=== PATIENT | female | born 1960 | race Caucasian/White ===

== ENCOUNTER 2017-08-30 06:06 | Inpatient (IN) | payer OTHER ==
[~2017-08-30 06:06] MED LIST: CEFAZOLIN 2 GM/50 ML (PMX) 50 ML IVPB
[2017-08-30] MEDS ORDERED: POLYMYXIN/BACITRACIN 1L IRRIG (09:17)
[2017-08-30] MEDS ORDERED: LABETALOL HCL 20MG INJ IV (09:30)
[2017-08-30] MEDS ORDERED: MIDAZOLAM 1 MG/ML 2 ML INJ IV (09:30)
[2017-08-30] MEDS ORDERED: hydrALAzine 20 MG INJ IV (09:30)
[2017-08-30] MEDS ORDERED: GLYCOPYRROLATE 0.4 MG INJ ×2 (09:30→09:47)
[2017-08-30] MEDS ORDERED: ROCURONIUM 50 MG INJ (09:30)
[2017-08-30] MEDS ORDERED: OXYCODONE/ACETAMINOPHEN (5/325) TAB PO ×2 (09:30)
[2017-08-30] MEDS ORDERED: METOCLOPRAMIDE 10 MG INJ IV (09:30)
[2017-08-30] MEDS ORDERED: FENTAnyl 50 MCG/ML VIAL IV (09:30)
[2017-08-30] MEDS ORDERED: EPHEDrine SULFATE 50 MG/5 ML SYG IV (09:30)
[2017-08-30] MEDS ORDERED: HYDROmorphONE 1 MG/5 ML IV SYRINGE IV (09:30)
[2017-08-30] MEDS ORDERED: MEPERIDINE 100 MG INJ (09:30)
[2017-08-30] MEDS ORDERED: SUCCINYLCHOLINE CHLORIDE 100 MG/5 ML SYG IV (09:30)
[2017-08-30] MEDS ORDERED: NEOSTIGMINE 3 MG/3 ML SYRINGE ×2 (09:30→09:47)
[2017-08-30] MEDS ORDERED: PROPOFOL 20 ML (09:30)
[2017-08-30] MEDS ORDERED: LIDOCAINE 2% (SDV) 5 ML INJ (09:30)
[2017-08-30] MEDS ORDERED: METOCLOPRAMIDE 10 MG INJ (09:47)
[2017-08-30] MEDS ORDERED: ONDANSETRON 4 MG INJ (09:47)
[2017-08-30] MEDS ORDERED: CEFAZOLIN 1 GM INJ ×2 (09:47)
[2017-08-30] MEDS: POLYMYXIN/BACITRACIN 1L IRRIG IRR (10:10)
[2017-08-30] MEDS: BUPIVACAINE 0.25% (MPF) 30 ML INJ (10:10)
[2017-08-30] MEDS: CEFAZOLIN 2 GM/50 ML (PMX) 50 ML IVPB ×2 (11:30→20:40)
[2017-08-30] MEDS ORDERED: NALOXONE (0.4 MG/ML) INJ IV (11:30)
[2017-08-30] MEDS ORDERED: HYDROCODONE/APAP (5/325) TAB PO (11:30)
[2017-08-30] MEDS: ONDANSETRON 4 MG INJ IV (11:31)
[2017-08-30] MEDS: HYDROmorphONE 1 MG/5 ML IV SYRINGE IV ×4 (11:31→12:34)
[2017-08-30] MEDS: FENTAnyl 50 MCG/ML VIAL IV ×3 (11:32→12:34)
[2017-08-30] MEDS: MEPERIDINE 25 MG INJ IV (11:55)
[2017-08-30] MEDS: morphine 2 MG INJ IV (11:57)
[2017-08-30] MEDS: DIPHENHYDRAMINE 50 MG INJ IV (12:02)
[2017-08-30 12:05] LABS: ADD MAN DIFF? NO
[2017-08-30 12:12] LABS: BASOPHIL # 0.1 10^3/ul (0.0-0.1); BASOPHILS % 0.5 % (0.0-2.0); EOSINOPHILS # 0.1 10^3/ul (0.0-0.5); EOSINOPHILS % 1.3 % (0.0-7.0); HEMATOCRIT 41.3 % (37.0-47.0); LYMPHOCYTES # 2.4 10^3/ul (0.8-2.9); LYMPHOCYTES % 24.3 % (15.0-51.0); MEAN CORPUSCULAR HGB CONC 31.5 g/dl (32.0-37.0); MEAN CORPUSCULAR VOLUME 85.7 fl (82.0-101.0); MEAN PLATELET VOLUME 8.8 fl (7.4-10.4); MONOCYTE # 0.7 10^3/ul (0.3-0.9); NEUTROPHIL # 6.4 10^3/ul (1.6-7.5); NEUTROPHILS % 66.7 % (39.0-77.0); PLATELET COUNT 208 10^3/UL (140-415); RED BLOOD COUNT 4.82 10^6/ul (4.20-5.40); RED CELL DISTRIBUTION WIDTH 16.4 % (11.5-14.5)
[2017-08-30 12:12] LABS: WHITE BLOOD COUNT 9.7 10^3/ul (4.8-10.8)
[2017-08-30 12:28] LABS: ALANINE AMINOTRANSFERASE 43 IU/L (13-69); ALBUMIN 4.2 g/dl (3.3-4.9); ALBUMIN/GLOBULIN RATIO 1.27; ALKALINE PHOSPHATASE 94 IU/L (42-121); ANION GAP 14 (8-16); ASPARTATE AMINO TRANSFERASE 50 IU/L (15-46); BILIRUBIN,INDIRECT 0.3 mg/dl (0-1.1); BILIRUBIN,TOTAL 0.3 mg/dl (0.2-1.3); BLOOD UREA NITROGEN 11 mg/dl (7-20); CALCIUM 8.8 mg/dl (8.4-10.2); CARBON DIOXIDE 24 mmol/L (21-31); CHLORIDE 110 mmol/L (97-110); CREATININE 0.61 mg/dl (0.44-1.00); GLUCOSE 142 mg/dl (70-220); SODIUM 144 mmol/L (135-144); TOTAL PROTEIN 7.5 g/dl (6.1-8.1)
[2017-08-30] MEDS: SOD CHLORIDE 0.9% 1,000 ML IV ×3 (13:34→21:10)
[2017-08-30] MEDS: HYDROmorphONE 0.2 MG/ML PCA IV (14:36)
[2017-08-30] MEDS: HYDROCODONE/APAP (5/325) TAB PO (15:06)
[2017-08-30] MEDS ORDERED: GLUCAGON 1 MG INJ IM (18:30)
[2017-08-30] MEDS ORDERED: DEXTROSE 50% 50 ML SYRINGE IV ×2 (18:30)
[2017-08-30] MEDS ORDERED: GLUCOSE GEL 15 GRAM TUBE BUCCAL (18:30)
[2017-08-30] MEDS ORDERED: GLUCOSE GEL 15 GRAM TUBE PO ×2 (18:30)
[2017-08-30 19:21] LABS: HEMOGLOBIN A1C 7.3 % (0-5.9)
[2017-08-30] MEDS: INSULIN ASPART [NOVOLOG] 3 ML PEN SC (20:36)
[2017-08-30] MEDS: ATORVASTATIN 20 MG TAB PO (20:37)
[2017-08-30] MEDS: HYDROmorphONE 1 MG/ML SYG IV (20:59)
[2017-08-31] MEDS: HYDROmorphONE 1 MG/ML SYG IV ×5 (01:42→21:34)
[2017-08-31] MEDS: SOD CHLORIDE 0.9% 1,000 ML IV ×5 (02:03→17:34)
[2017-08-31] MEDS: CEFAZOLIN 2 GM/50 ML (PMX) 50 ML IVPB (03:17)
[2017-08-31] MEDS: INSULIN ASPART [NOVOLOG] 3 ML PEN SC ×4 (05:26→21:00)
[2017-08-31 06:09] LABS: ADD MAN DIFF? NO
[2017-08-31 06:18] LABS: ABNORMAL IP MESSAGE 1; BASOPHILS % 0.1 % (0.0-2.0); HEMATOCRIT 36.1 % (37.0-47.0); HEMOGLOBIN 11.1 g/dl (12.0-16.0); LYMPHOCYTES # 1.7 10^3/ul (0.8-2.9); LYMPHOCYTES % 10.8 % (15.0-51.0); MEAN CORPUSCULAR HEMOGLOBIN 26.8 pg (29.0-33.0); MEAN CORPUSCULAR HGB CONC 30.7 g/dl (32.0-37.0); MEAN CORPUSCULAR VOLUME 87.2 fl (82.0-101.0); MEAN PLATELET VOLUME 9.6 fl (7.4-10.4); MONOCYTE # 1.8 10^3/ul (0.3-0.9); MONOCYTES % 11.3 % (0.0-11.0); NEUTROPHILS % 77.3 % (39.0-77.0); PLATELET COUNT 212 10^3/UL (140-415); RED BLOOD COUNT 4.14 10^6/ul (4.20-5.40); RED CELL DISTRIBUTION WIDTH 16.7 % (11.5-14.5)
[2017-08-31 06:18] LABS: WHITE BLOOD COUNT 15.5 10^3/ul (4.8-10.8)
[2017-08-31 06:22] LABS: POSITIVE DIFF @See below
[2017-08-31 07:19] LABS: ALANINE AMINOTRANSFERASE 37 IU/L (13-69); ALBUMIN 3.7 g/dl (3.3-4.9); ALBUMIN/GLOBULIN RATIO 1.08; ALKALINE PHOSPHATASE 78 IU/L (42-121); ANION GAP 17 (8-16); ASPARTATE AMINO TRANSFERASE 38 IU/L (15-46); BILIRUBIN,INDIRECT 0.5 mg/dl (0-1.1); BILIRUBIN,TOTAL 0.5 mg/dl (0.2-1.3); BLOOD UREA NITROGEN 15 mg/dl (7-20); CALCIUM 8.4 mg/dl (8.4-10.2); CARBON DIOXIDE 22 mmol/L (21-31); CHLORIDE 111 mmol/L (97-110); CREATININE 0.82 mg/dl (0.44-1.00); GLUCOSE 195 mg/dl (70-220); POTASSIUM 4.6 mmol/L (3.5-5.1); SODIUM 145 mmol/L (135-144); TOTAL PROTEIN 7.1 g/dl (6.1-8.1)
[2017-08-31] MEDS: metFORMIN 500 MG TAB PO ×2 (08:00→17:59)
[2017-08-31] MEDS: ATORVASTATIN 20 MG TAB PO (21:28)
[2017-08-31] MEDS: ACETAMINOPHEN 325 MG TAB PO (23:34)
[2017-08-31] MEDS: PIPER-TAZO 3.375 GM IV (PMX) 100 ML IVPB (23:35)
[2017-09-01 00:15] LABS: LACTIC ACID 1.3 mmol/L (0.5-2.0)
[2017-09-01] MEDS: ACCU-CHEK XX ×2 (02:00→20:27)
[2017-09-01] MEDS: SOD CHLORIDE 0.9% 1,000 ML IV ×4 (03:10→23:10)
[2017-09-01 05:47] LABS: ADD MAN DIFF? NO; BASOPHILS % 0.2 % (0.0-2.0); EOSINOPHILS % 0.1 % (0.0-7.0); HEMOGLOBIN 8.7 g/dl (12.0-16.0); LYMPHOCYTES % 16.1 % (15.0-51.0); MEAN CORPUSCULAR HEMOGLOBIN 27.1 pg (29.0-33.0); MEAN CORPUSCULAR HGB CONC 31.1 g/dl (32.0-37.0); MEAN CORPUSCULAR VOLUME 87.2 fl (82.0-101.0); MEAN PLATELET VOLUME 9.4 fl (7.4-10.4); MONOCYTE # 1.3 10^3/ul (0.3-0.9); MONOCYTES % 10.3 % (0.0-11.0); NEUTROPHIL # 9.1 10^3/ul (1.6-7.5); NEUTROPHILS % 72.5 % (39.0-77.0); PLATELET COUNT 168 10^3/UL (140-415); RED BLOOD COUNT 3.21 10^6/ul (4.20-5.40); RED CELL DISTRIBUTION WIDTH 16.5 % (11.5-14.5)
[2017-09-01 05:47] LABS: WHITE BLOOD COUNT 12.6 10^3/ul (4.8-10.8)
[2017-09-01] MEDS: PIPER-TAZO 3.375 GM IV (PMX) 100 ML IVPB ×3 (06:02→17:33)
[2017-09-01 06:12] LABS: ALANINE AMINOTRANSFERASE 31 IU/L (13-69); ALBUMIN 3.1 g/dl (3.3-4.9); ALBUMIN/GLOBULIN RATIO 1.06; ALKALINE PHOSPHATASE 69 IU/L (42-121); ANION GAP 13 (8-16); ASPARTATE AMINO TRANSFERASE 33 IU/L (15-46); BILIRUBIN,INDIRECT 0.8 mg/dl (0-1.1); BILIRUBIN,TOTAL 0.8 mg/dl (0.2-1.3); BLOOD UREA NITROGEN 8 mg/dl (7-20); CALCIUM 8.5 mg/dl (8.4-10.2); CARBON DIOXIDE 24 mmol/L (21-31); CHLORIDE 107 mmol/L (97-110); GLUCOSE 145 mg/dl (70-220); SODIUM 140 mmol/L (135-144)
[2017-09-01] MEDS: INSULIN ASPART [NOVOLOG] 3 ML PEN SC ×4 (08:17→20:16)
[2017-09-01] MEDS: metFORMIN 500 MG TAB PO ×2 (08:18→17:33)
[2017-09-01 14:09] LABS: HEMATOCRIT 28.4 % (37.0-47.0); HEMOGLOBIN 8.8 g/dl (12.0-16.0)
[2017-09-01 14:25] LABS: LACTIC ACID 1.3 mmol/L (0.5-2.0)
[2017-09-01] MEDS: ATORVASTATIN 20 MG TAB PO (20:12)
[2017-09-01] MEDS: ACETAMINOPHEN 325 MG TAB PO (20:13)
[2017-09-01 20:32] LABS: HEMATOCRIT 28.3 % (37.0-47.0); HEMOGLOBIN 8.8 g/dl (12.0-16.0)
[2017-09-02] MEDS: PIPER-TAZO 3.375 GM IV (PMX) 100 ML IVPB ×2 (00:31→05:06)
[2017-09-02] MEDS: SOD CHLORIDE 0.9% 1,000 ML IV ×2 (05:06→19:23)
[2017-09-02 06:34] LABS: ADD MAN DIFF? NO
[2017-09-02 06:44] LABS: BASOPHILS % 0.3 % (0.0-2.0); EOSINOPHILS # 0.1 10^3/ul (0.0-0.5); EOSINOPHILS % 1.1 % (0.0-7.0); HEMATOCRIT 25.6 % (37.0-47.0); HEMOGLOBIN 7.8 g/dl (12.0-16.0); LYMPHOCYTES # 1.8 10^3/ul (0.8-2.9); LYMPHOCYTES % 18.9 % (15.0-51.0); MEAN CORPUSCULAR HEMOGLOBIN 26.5 pg (29.0-33.0); MEAN CORPUSCULAR HGB CONC 30.5 g/dl (32.0-37.0); MEAN CORPUSCULAR VOLUME 87.1 fl (82.0-101.0); MEAN PLATELET VOLUME 9.4 fl (7.4-10.4); MONOCYTE # 0.8 10^3/ul (0.3-0.9); MONOCYTES % 8.3 % (0.0-11.0); NEUTROPHIL # 6.7 10^3/ul (1.6-7.5); NEUTROPHILS % 70.5 % (39.0-77.0); NUCLEATED RED BLOOD CELLS% 0.2 /100WBC (0.0-0.0); PLATELET COUNT 157 10^3/UL (140-415); RED BLOOD COUNT 2.94 10^6/ul (4.20-5.40); RED CELL DISTRIBUTION WIDTH 16.5 % (11.5-14.5)
[2017-09-02 06:44] LABS: WHITE BLOOD COUNT 9.5 10^3/ul (4.8-10.8)
[2017-09-02] MEDS: INSULIN ASPART [NOVOLOG] 3 ML PEN SC ×4 (08:00→20:45)
[2017-09-02] MEDS: metFORMIN 500 MG TAB PO ×3 (08:00→18:13)
[2017-09-02] MEDS: HYDROmorphONE 1 MG/ML SYG IV ×2 (10:32→20:39)
[2017-09-02 12:06] LABS: HEMATOCRIT 27.9 % (37.0-47.0); HEMOGLOBIN 8.5 g/dl (12.0-16.0)
[2017-09-02 19:51] LABS: HEMATOCRIT 28.1 % (37.0-47.0); HEMOGLOBIN 8.8 g/dl (12.0-16.0)
[2017-09-02] MEDS: ATORVASTATIN 20 MG TAB PO (20:39)
[2017-09-03] MEDS: ACCU-CHEK XX (02:00)
[2017-09-03] MEDS: SOD CHLORIDE 0.9% 1,000 ML IV (05:24)
[2017-09-03 05:56] LABS: ADD MAN DIFF? NO
[2017-09-03 05:58] LABS: WHITE BLOOD COUNT 7.7 10^3/ul (4.8-10.8)
[2017-09-03 05:59] LABS: BASOPHILS % 0.3 % (0.0-2.0); EOSINOPHILS # 0.1 10^3/ul (0.0-0.5); EOSINOPHILS % 1.4 % (0.0-7.0); HEMATOCRIT 25.9 % (37.0-47.0); HEMOGLOBIN 8.2 g/dl (12.0-16.0); LYMPHOCYTES # 1.5 10^3/ul (0.8-2.9); LYMPHOCYTES % 19.5 % (15.0-51.0); MEAN CORPUSCULAR HEMOGLOBIN 27.3 pg (29.0-33.0); MEAN CORPUSCULAR HGB CONC 31.7 g/dl (32.0-37.0); MEAN CORPUSCULAR VOLUME 86.3 fl (82.0-101.0); MEAN PLATELET VOLUME 8.9 fl (7.4-10.4); MONOCYTE # 0.8 10^3/ul (0.3-0.9); MONOCYTES % 9.9 % (0.0-11.0); NEUTROPHIL # 5.2 10^3/ul (1.6-7.5); NEUTROPHILS % 67.7 % (39.0-77.0); NUCLEATED RED BLOOD CELLS% 0.3 /100WBC (0.0-0.0); PLATELET COUNT 188 10^3/UL (140-415); RED CELL DISTRIBUTION WIDTH 16.3 % (11.5-14.5)
[2017-09-03 06:56] LABS: ANION GAP 14 (8-16); BLOOD UREA NITROGEN 6 mg/dl (7-20); CALCIUM 8.2 mg/dl (8.4-10.2); CARBON DIOXIDE 25 mmol/L (21-31); CHLORIDE 105 mmol/L (97-110); CREATININE 0.44 mg/dl (0.44-1.00); GLUCOSE 113 mg/dl (70-220); POTASSIUM 3.3 mmol/L (3.5-5.1); SODIUM 141 mmol/L (135-144)
[2017-09-03] MEDS: INSULIN ASPART [NOVOLOG] 3 ML PEN SC ×4 (08:00→20:07)
[2017-09-03] MEDS: metFORMIN 500 MG TAB PO ×2 (08:13→17:46)
[2017-09-03] MEDS: POTASSIUM CHLORIDE (SR) 20 MEQ TAB PO (13:58)
[2017-09-03] MEDS: ATORVASTATIN 20 MG TAB PO (20:06)
[2017-09-04] MEDS: ACCU-CHEK XX (01:16)
[2017-09-04] MEDS: INSULIN ASPART [NOVOLOG] 3 ML PEN SC ×4 (08:00→20:45)
[2017-09-04] MEDS: metFORMIN 500 MG TAB PO ×2 (08:14→17:43)
[2017-09-04] MEDS: ATORVASTATIN 20 MG TAB PO (20:46)
[2017-09-05] MEDS: ACCU-CHEK XX (01:25)
[2017-09-05] MEDS: INSULIN ASPART [NOVOLOG] 3 ML PEN SC (08:00)
[2017-09-05] MEDS: metFORMIN 500 MG TAB PO (09:19)
== END 2017-09-05 12:15 | disposition home or self-care (01) | DRG 355 ==
LOC: REC 06:06 → PP2 13:10
PROVIDERS: Surgery
PROC: 0WUF0JZ Supplement Abdominal Wall with Synthetic Substitute, Open Approach (ICD-10-PCS; principal; 2017-08-30 09:18)
PROC: 0KUL07Z Supplement Left Abdomen Muscle with Autologous Tissue Substitute, Open Approach (ICD-10-PCS; 2017-08-30 09:18)
PROC: 0KUK07Z Supplement Right Abdomen Muscle with Autologous Tissue Substitute, Open Approach (ICD-10-PCS; 2017-08-30 09:18)
DX: K43.0 Incisional hernia with obstruction, without gangrene (principal); K43.9 Ventral hernia without obstruction or gangrene; M95.8 Other specified acquired deformities of musculoskeletal system; E11.9 Type 2 diabetes mellitus without complications; E78.5 Hyperlipidemia, unspecified; E66.9 Obesity, unspecified; Z68.36 Body mass index [BMI] 36.0-36.9, adult
CPT/HCPCS: 80048; 80053; 82962; 83036; 83605; 85014; 85018; 85025; 87040; 88302